=== PATIENT | female | born 1960 | race Caucasian/White ===

== ENCOUNTER 2020-05-26 11:39 | Day surgery (SDC) | payer MEDICARE, BC ==
[~2020-05-26] VITALS: Ht 162.6 cm; Wt 86.2 kg
[~2020-05-26 11:39] MED LIST: ACID REDUCER 1150 MG PO; ALBU90OI61 INH; ALPR.5; ALPR.5 PO; CHOL10002 PO; CIPR500 PO; CLIN300 PO; COMBIVENT RESPIM4 GM; CONEST.625 PO; CONEST1.25; CYCL10 PO; ESOM20 PO; ESTR2; FAMO20 PO; FLUC150A PO; HYDACE5 PO; IBUP800 PO; LISI20 PO; METR500 PO; MONT10T; MULVITMINE PO; NAPR220 PO; NAPR500 PO; NORT25; OXYB5 PO; Omeprazole20 M1 PO; PARO10 PO; PARO30 PO; PHENA200 PO; PREG75; PROM25 PO; Percocet 5-3251 EACH PO; RXSULTRIDS PO; SULTRIDS PO; TRAACE PO
--- NOTE | 2020-05-26 12:16 | NUR ---
05/26/20 1216 RIC PARKER ONE ATTEMPT BY ERIK IN RAC MISSED ONE SUCCESSFUL BY ERIK IN RH PT TOW
--- NOTE | 2020-05-26 15:39 | NUR ---
05/26/20 1539 Hermelinda Rivas PT. VERBALIZES HAVING A LITTLE BIT OF NAUSEA POST PROCEDURE. PT. BURPED UP SOME AIR & PASSED SOME AIR & PT. VERBALIZES FEELING BETTER. NAUSEA RESOLVED.
== END 2020-05-26 14:33 | disposition home or self-care (01) ==
LOC: ORSCSDS 11:39
PROVIDERS: Internal Medicine Gastroenterology
PROC: 0DBN8ZX Excision of Sigmoid Colon, Via Natural or Artificial Opening Endoscopic, Diagnostic (ICD-10-PCS; principal; 2020-05-26 13:00)
PROC: 0DB58ZX Excision of Esophagus, Via Natural or Artificial Opening Endoscopic, Diagnostic (ICD-10-PCS; principal; 2020-05-26 13:00)
PROC: 0DBK8ZX Excision of Ascending Colon, Via Natural or Artificial Opening Endoscopic, Diagnostic (ICD-10-PCS; principal; 2020-05-26 13:00)
DX: K21.9 Gastro-esophageal reflux disease without esophagitis (principal); Z86.010 Personal history of colon polyps; R10.84 Generalized abdominal pain; F17.210 Nicotine dependence, cigarettes, uncomplicated; J44.9 Chronic obstructive pulmonary disease, unspecified; Z79.899 Other long term (current) drug therapy; D12.2 Benign neoplasm of ascending colon; K63.5 Polyp of colon; K57.30 Diverticulosis of large intestine without perforation or abscess without bleeding
CPT/HCPCS: 88305; J2704; J7120

== ENCOUNTER → 2022-11-08 | Outpatient (CLI) | payer MEDICARE, OTHER ==
[2022-11-08 17:05] LABS: Source, Urine Clean Catch
[2022-11-08 17:41] LABS: Appearance, Urine Clear (Clear); Bilirubin, Urine Neg (Neg); Blood, Urine Neg (Neg); Color, Urine Yellow (P-Yellow); Glucose Qualitative, Urine Neg (Neg); Ketones, Urine Neg (Neg); Leukocyte Esterase, Urine Neg (Neg); Nitrite, Urine Neg (Neg); Protein, Urine Neg (Neg); Specific Gravity, Urine 1.015 (1.003-1.022); Urobilinogen, Urine NORM (Normal)
== END ==
LOC: LAB SHORT 07:45
PROVIDERS: Registered Nurse
DX: R30.0 Dysuria (principal)
CPT/HCPCS: 81003

== ENCOUNTER → 2023-02-03 | Outpatient (CLI) | payer MEDICARE, OTHER ==
[2023-02-03 09:58] LABS: BASOPHILS ABSOLUTE AUTO 0.05 K/mm3 (0.00-0.23); BASOPHILS PERCENT AUTO 0 % (0-2); EOSINOPHILS ABSOLUTE AUTO 0.06 K/mm3 (0.00-0.68); EOSINOPHILS PERCENT AUTO 0 % (0-6); Hemoglobin 14.1 g/dL (11.5-16.0); IMMATURE GRAN ABSOLUTE AUTO 0.08 K/mm3 (0.00-0.10); IMMATURE GRAN PERCENT AUTO 0 % (0-1); LYMPHOCYTES ABSOLUTE AUTO 1.72 K/mm3 (0.84-5.20); LYMPHOCYTES PERCENT AUTO 8 % (21-46); MONOCYTES ABSOLUTE AUTO 0.84 K/mm3 (0.16-1.47); MONOCYTES PERCENT AUTO 4 % (4-13); Mean Corpuscular HGB 30.7 pg (26.0-34.0); Mean Corpuscular HGB Conc 34.4 g/dL (31.5-36.5); Mean Corpuscular Volume 89 fL (80-100); Mean Platelet Volume 8.7 fL (9.1-12.4); NEUTROPHILS ABSOLUTE AUTO 17.84 K/mm3 (1.96-9.15); NEUTROPHILS PERCENT AUTO 87 % (41-73); Platelet Count 316 K/mm3 (150-400); RDW Coefficient Variation 13.2 % (11.7-14.2); RDW Standard Deviation 42.9 fL (35.1-46.3); Red Blood Cell Count 4.59 M/mm3 (3.80-5.20); White Blood Cell Count 20.59 K/mm3 (4.00-11.30)
[2023-02-03 10:10] LABS: Albumin, Blood 3.8 g/dL (3.4-5.0); Albumin/Globulin Ratio 1.2 (0.8-1.8); Bilirubin, Total 0.7 mg/dL (0.1-1.0); Bun/Creatinine Ratio 16.7 (12.0-20.0); Calcium, Blood 8.8 mg/dL (8.5-10.1); Creatinine, Blood 1.2 mg/dL (0.40-1.00); Globulin, Blood 3.3 g/dL (2.2-4.0); Potassium, Blood 4.5 mmol/L (3.5-5.5); Total Protein, Blood 7.1 g/dL (6.4-8.2)
== END | disposition home or self-care (01) ==
LOC: LAB SHORT 09:53
PROVIDERS: Chiropractor
DX: R10.12 Left upper quadrant pain (principal)
CPT/HCPCS: 80053; 83690; 84484; 85025

== ENCOUNTER → 2023-03-27 | Outpatient (CLI) | payer OTHER ==
[2023-03-27 17:03] LABS: Source, Urine Clean Catch
[2023-03-27 18:06] LABS: Appearance, Urine Clear (Clear); Bilirubin, Urine Neg (Neg); Blood, Urine Neg (Neg); Color, Urine Yellow (P-Yellow); Glucose Qualitative, Urine Neg (Neg); Ketones, Urine Neg (Neg); Leukocyte Esterase, Urine Neg (Neg); Nitrite, Urine Neg (Neg); Protein, Urine Neg (Neg); Urobilinogen, Urine NORM (Normal)
== END | disposition home or self-care (01) ==
LOC: LAB SHORT 08:30 → LAB 08:30
PROVIDERS: Registered Nurse
DX: R35.0 Frequency of micturition (principal); R39.15 Urgency of urination
CPT/HCPCS: 81003

== ENCOUNTER 2023-08-13 17:06 | Emergency (ER) | payer OTHER ==
[~2023-08-13] VITALS: Ht 162.6 cm; Wt 79.4 kg
[2023-08-13 18:11] LABS: BASOPHILS ABSOLUTE AUTO 0.05 K/mm3 (0.00-0.23); BASOPHILS PERCENT AUTO 1 % (0-2); EOSINOPHILS ABSOLUTE AUTO 0.14 K/mm3 (0.00-0.68); EOSINOPHILS PERCENT AUTO 2 % (0-6); Hemoglobin 13.1 g/dL (11.5-16.0); IMMATURE GRAN ABSOLUTE AUTO 0.02 K/mm3 (0.00-0.10); IMMATURE GRAN PERCENT AUTO 0 % (0-1); LYMPHOCYTES ABSOLUTE AUTO 3.59 K/mm3 (0.84-5.20); LYMPHOCYTES PERCENT AUTO 39 % (21-46); MONOCYTES ABSOLUTE AUTO 0.57 K/mm3 (0.16-1.47); MONOCYTES PERCENT AUTO 6 % (4-13); Mean Corpuscular HGB 30.3 pg (26.0-34.0); Mean Corpuscular HGB Conc 33.6 g/dL (31.5-36.5); Mean Corpuscular Volume 90 fL (80-100); Mean Platelet Volume 8.6 fL (9.1-12.4); NEUTROPHILS ABSOLUTE AUTO 4.79 K/mm3 (1.96-9.15); NEUTROPHILS PERCENT AUTO 52 % (41-73); Platelet Count 289 K/mm3 (150-400); RDW Coefficient Variation 13.1 % (11.7-14.2); RDW Standard Deviation 43.1 fL (35.1-46.3); Red Blood Cell Count 4.32 M/mm3 (3.80-5.20); White Blood Cell Count 9.16 K/mm3 (4.00-11.30)
[2023-08-13 19:07] LABS: Albumin, Blood 3.9 g/dL (3.4-5.0); Albumin/Globulin Ratio 1.3 (0.8-1.8); Bilirubin, Total 0.3 mg/dL (0.1-1.0); Bun/Creatinine Ratio 8.7 (12.0-20.0); Calcium, Blood 9.4 mg/dL (8.5-10.1); Creatinine, Blood 1.27 mg/dL (0.40-1.00); Globulin, Blood 3.1 g/dL (2.2-4.0); Potassium, Blood 4.2 mmol/L (3.5-5.5)
[2023-08-13 20:04] VITALS: BP 124/76
== END 2023-08-13 21:27 | disposition left against medical advice (07) ==
LOC: ER 17:06
PROVIDERS: Physician Assistant
DX: R51.9 Headache, unspecified (principal); R07.89 Other chest pain; Z53.29 Procedure and treatment not carried out because of patient's decision for other reasons; Z79.899 Other long term (current) drug therapy
CPT/HCPCS: 80053; 85025; 99283

== ENCOUNTER → 2023-10-11 | Outpatient (CLI) | payer OTHER | END | disposition home or self-care (01) | LOC: LAB SHORT 07:39 → LAB 07:39 | DX: L40.2 Acrodermatitis continua (principal); B35.1 Tinea unguium | CPT/HCPCS: 88305; 88312 ==

== ENCOUNTER → 2024-06-23 | Outpatient (CLI) | payer OTHER ==
[2024-06-23 15:12] LABS: BASOPHILS ABSOLUTE AUTO 0.06 K/mm3 (0.00-0.23); BASOPHILS PERCENT AUTO 1 % (0-2); EOSINOPHILS ABSOLUTE AUTO 0.06 K/mm3 (0.00-0.68); EOSINOPHILS PERCENT AUTO 1 % (0-6); Hematocrit 37.6 % (33.0-51.0); Hemoglobin 12.8 g/dL (11.5-16.0); IMMATURE GRAN ABSOLUTE AUTO 0.03 K/mm3 (0.00-0.10); IMMATURE GRAN PERCENT AUTO 0 % (0-1); LYMPHOCYTES ABSOLUTE AUTO 2.89 K/mm3 (0.84-5.20); LYMPHOCYTES PERCENT AUTO 28 % (21-46); MONOCYTES ABSOLUTE AUTO 0.49 K/mm3 (0.16-1.47); MONOCYTES PERCENT AUTO 5 % (4-13); Mean Corpuscular HGB 30.8 pg (26.0-34.0); Mean Corpuscular Volume 90 fL (80-100); Mean Platelet Volume 8.6 fL (9.1-12.4); NEUTROPHILS ABSOLUTE AUTO 6.97 K/mm3 (1.96-9.15); NEUTROPHILS PERCENT AUTO 66 % (41-73); Platelet Count 302 K/mm3 (150-400); RDW Coefficient Variation 12.8 % (11.7-14.2); RDW Standard Deviation 42.4 fL (35.1-46.3); Red Blood Cell Count 4.16 M/mm3 (3.80-5.20)
[2024-06-23 15:18] LABS: Bun/Creatinine Ratio 11.5 (12.0-20.0); Calcium, Blood 9.4 mg/dL (8.5-10.1); Creatinine, Blood 1.04 mg/dL (0.40-1.00); Potassium, Blood 3.8 mmol/L (3.5-5.5)
== END ==
LOC: LAB SHORT 15:09 → LAB 15:09
PROVIDERS: Family Medicine
DX: R31.9 Hematuria, unspecified (principal)
CPT/HCPCS: 80048; 85025

== ENCOUNTER → 2024-07-16 | Outpatient (CLI) | payer OTHER ==
[2024-07-17 18:13] LABS: Appearance, Urine Clear (Clear); Bilirubin, Urine Neg (Neg); Blood, Urine Neg (Neg); Color, Urine Yellow (P-Yellow); Glucose Qualitative, Urine Neg (Neg); Ketones, Urine Neg (Neg); Leukocyte Esterase, Urine Neg (Neg); Nitrite, Urine Neg (Neg); Protein, Urine Neg (Neg); Specific Gravity, Urine 1.005 (1.003-1.022); Urobilinogen, Urine NORM (Normal)
== END ==
LOC: LAB 16:30 → LAB SHORT 16:30
PROVIDERS: Family Medicine
DX: R31.9 Hematuria, unspecified (principal)
CPT/HCPCS: 81003

== ENCOUNTER → 2025-01-06 | Outpatient (CLI) | payer OTHER ==
[2025-01-06 18:18] LABS: Bacterial Vaginosis PCR Negative (NEGATIVE); Candida Group, PCR NOT DETECTED (NOT DETECT); Candida glabrata-krusei, PCR NOT DETECTED (NOT DETECT)
== END | disposition home or self-care (01) ==
LOC: LAB 14:31 → LAB SHORT 14:31
PROVIDERS: Nurse Practitioner
DX: L29.2 Pruritus vulvae (principal); R30.0 Dysuria
CPT/HCPCS: 81515; 87077; 87086; 87186

== ENCOUNTER → 2025-06-16 | Outpatient (CLI) | payer OTHER ==
[~2025-06-16] MED LIST changes: +AMLODIPINE BESY10 MG; +Lisinopril2.5 MG; +OXYC10TA19; +XANAX
[2025-06-17 03:18] LABS: Campylobacter Sp Not Detected (NOT DETECT); E. Coli O157 Not Detected (NOT DETECT); Enteroaggregative E. coli-EAEC Not Detected (NOT DETECT); Enteropathogenic E. coli-EPEC Detected (NOT DETECT); Enterotoxigenic E. coli-ETEC Not Detected (NOT DETECT); Salmonella Sp Not Detected (NOT DETECT); Shiga Toxin-prod E. coli-STEC Not Detected (NOT DETECT); Shigella/Enteroin E. coli-EIEC Not Detected (NOT DETECT); Vibrio Sp Not Detected (NOT DETECT)
== END ==
LOC: LAB SHORT 10:15 → LAB 10:15
PROVIDERS: Physician Assistant Medical
DX: R19.7 Diarrhea, unspecified (principal)
CPT/HCPCS: 87324; 87507

== ENCOUNTER 2025-08-06 10:16 | Day surgery (SDC) | payer OTHER ==
[~2025-08-06] VITALS: Ht 162.6 cm; Wt 78.9 kg
[2025-08-06] VITALS (16 sets, daily range): BP systolic 110–130; BP diastolic 56–75
[~2025-08-06 10:16] MED LIST changes: +ALPR1 PO; +AMLO10 PO; -AMLODIPINE BESY10 MG; +FentaNYL Citrate 50 MCG/ML 2 ML Injection ONE; -MONT10T; +MONT10T PO; +MULTI-VITAMIN1 EAC2 PO; +Midazolam HCl 1MG / ML 2ML Vial ONE; +NALOXONE HCL4 MG; +OMEP20ER PO; +OXYC10ER PO; -OXYC10TA19; -Omeprazole20 M1 PO; +Vitamin B Comple1 EA PO; -XANAX
[2025-08-06] MEDS ORDERED: CeFAZolin Sodium 2,000 MG in NS 100 ML IV SCH (10:20)
[2025-08-06] MEDS ORDERED: Tranexamic Acid 100 ML IV SCH (10:20)
[2025-08-06 11:52] LABS: Alanine Aminotransfer (ALT/SGP 20.0 U/L (12-78); Albumin, Blood 3.7 g/dL (3.4-5.0); Albumin/Globulin Ratio 1.3 (0.8-1.8); Anion Gap 9.0 mmol/L (3-11); Aspartate Aminotrans (AST/SGOT 18.0 U/L (12-37); Bilirubin, Total 0.4 mg/dL (0.1-1.0); Blood Urea Nitrogen 14.0 mg/dL (8-24); CO2, Blood 27.0 mmol/L (21-32); Calcium, Blood 8.7 mg/dL (8.5-10.1); Chloride, Blood 109.0 mmol/L (98-108); Creatinine, Blood 0.85 mg/dL (0.40-1.00); Globulin, Blood 2.8 g/dL (2.2-4.0); Glucose, Blood 103.0 mg/dL (70-99); Potassium, Blood 4.3 mmol/L (3.5-5.5); Sodium, Blood 141.0 mmol/L (136-145); Total Protein, Blood 6.5 g/dL (6.4-8.2)
[2025-08-06] MEDS ORDERED: Bupivacaine 0.5% W/EPI 1:200000 SDV 30 ML Vial ONE (12:54)
[2025-08-06] MEDS ORDERED: Dexamethasone Sod Phos 10 MG/ML 1ML VIAL ONE (13:16)
[2025-08-06] MEDS ORDERED: Ondansetron HCl 2 MG / ML 2ML Vial ONE ×2 (13:16→15:22)
--- NOTE | 2025-08-06 13:52 | NUR ---
08/06/25 3022 Latoya Ceja NOTED: SEVERAL SMALL SCABS TO PTS BILATERAL KNEES AND LOWER EXTREMITES
[2025-08-06] MEDS ORDERED: Phenylephrine HCl 100 MCG/ML-NS 10MLSYR (1MG/10ML) ONE (14:02)
[2025-08-06] MEDS ORDERED: Sugammadex Sodium 200 MG/2ML SDV (100 MG/ML) ONE (14:20)
[2025-08-06] MEDS ORDERED: FentaNYL Citrate 50 MCG/ML 2 ML Injection ONE ×2 (14:39→15:22)
[2025-08-06] MEDS ORDERED: FentaNYL Citrate 50 MCG/ML 2 ML Injection IV PRN ×2 (15:20)
[2025-08-06] MEDS ORDERED: Prochlorperazine Edisylate 10 mg Vial IV PRN (15:20)
[2025-08-06] MEDS ORDERED: HYDROmorphone HCl/Pf 1MG SYR IV PRN (15:20)
[2025-08-06] MEDS ORDERED: Ondansetron HCl 2 MG / ML 2ML Vial IV PRN (15:25)
[2025-08-06] MEDS ORDERED: HYDROmorphone HCl/Pf 1MG SYR ONE (15:32)
[2025-08-06] MEDS ORDERED: Ketorolac Tromethamine 30mg Vial ONE (15:49)
[2025-08-06] MEDS ORDERED: Prochlorperazine Edisylate 10 mg Vial ONE (15:59)
--- NOTE | 2025-08-06 16:58 | NUR ---
Discharge instructions reviewed with patient. Patient verbalizes understanding. Copy given to patient to take home. Patient States Post-Procedure ride home has been arranged. Discharged via wheelchair to private car for ride home. Patient educated on crutch use and NWB toe touch activity. Patient educated on limited acetaminophen use.
--- NOTE | 2025-08-06 17:11 | NUR ---
1630 AND 1635 WERE PUT IN ERROR - THEY WERE SUPPOSED TO BE FOR 1530 AND 1535.
== END 2025-08-06 23:00 | disposition home or self-care (01) ==
LOC: ORSCMMR 10:16 → ORD 12:00 → ORSCSDS 12:00 → ORSCMMR 23:00 → ORSCSDS 08-18 10:45
PROVIDERS: Orthopaedic Surgery Sports Medicine
PROC: 0LQJ0ZZ Repair Right Hip Tendon, Open Approach (ICD-10-PCS; principal; 2025-08-06 12:00)
DX: S76.011A Strain of muscle, fascia and tendon of right hip, initial encounter (principal); M70.61 Trochanteric bursitis, right hip; I10 Essential (primary) hypertension; Z79.899 Other long term (current) drug therapy
CPT/HCPCS: 80053; A9270; C1713; J0690; J0780; J1100; J1171; J1885; J2250; J2371; J2405; J2704; J3010; J7120; Q4171

== ENCOUNTER 2025-09-11 14:41 | Emergency (ER) | payer OTHER ==
[~2025-09-11] VITALS: Ht 162.6 cm; Wt 81.7 kg
[~2025-09-11 14:41] MED LIST changes: -FentaNYL Citrate 50 MCG/ML 2 ML Injection ONE; -Midazolam HCl 1MG / ML 2ML Vial ONE
[2025-09-11 17:25] VITALS: BP 118/73
== END 2025-09-11 17:27 | disposition home or self-care (01) ==
LOC: ER 14:41
DX: M25.551 Pain in right hip (principal); M54.50 Low back pain, unspecified; W18.30XA Fall on same level, unspecified, initial encounter; Z88.5 Allergy status to narcotic agent; Z88.2 Allergy status to sulfonamides; Z79.899 Other long term (current) drug therapy; F43.10 Post-traumatic stress disorder, unspecified; J44.9 Chronic obstructive pulmonary disease, unspecified; M19.90 Unspecified osteoarthritis, unspecified site; F17.200 Nicotine dependence, unspecified, uncomplicated
CPT/HCPCS: 72131; 73503; 99284-25; A9270